=== PATIENT | female | born 1940 | race Caucasian/White ===

== ENCOUNTER 2024-07-13 12:27 | Emergency (ER) | payer OTHER, BC ==
[2024-07-13 12:52] VITALS: RESP 19; TEMP 97.6; BMI 23.3
[2024-07-13] MEDS ORDERED: ACETAMINOPHEN 325 MG TABLET (FP) ONE (12:56)
[2024-07-13] MEDS: ACETAMINOPHEN 500 MG TABLET (FP) PO ONE (13:04)
[2024-07-13] MEDS: ACETAMINOPHEN 325 MG TABLET (FP) PO ONE (13:20)
[2024-07-13] MEDS ORDERED: DIPHTH,PERTUSS(ACELL),TET 0.5 ML DISP.SYRIN IM ONE (15:42)
[2024-07-13] MEDS: DIPHTH,PERTUSS(ACELL),TET 0.5 ML DISP.SYRIN IM ONE (15:52)
[2024-07-13 15:55] VITALS: BP 185/92; PULSE 89
== END 2024-07-13 15:55 | disposition home or self-care (01) ==
LOC: JER 12:27
PROC: 3E0234Z Introduction of Serum, Toxoid and Vaccine into Muscle, Percutaneous Approach (ICD-10-PCS; principal; 2024-07-13)
DX: S00.93XA Contusion of unspecified part of head, initial encounter (principal); M25.532 Pain in left wrist; R11.0 Nausea; M79.602 Pain in left arm; Z23 Encounter for immunization; W01.198A Fall on same level from slipping, tripping and stumbling with subsequent striking against other object, initial encounter
CPT/HCPCS: 70450-TC; 72125-TC; 73090-TC-LT-FY; 73110-TC-LT-FY; 73130-TC-LT-FY; 82962; 90471; 90715; 99285-25